=== PATIENT | male | born 1995 | race African-American/Black ===

== ENCOUNTER 2017-01-05 22:51 | Emergency (ER) | payer MEDICAID, OTHER ==
[~2017-01-05] VITALS: Ht 185.4 cm; Wt 79.5 kg
[2017-01-05 22:57] VITALS: Ht 185.4 cm; Wt 79.5 kg
[2017-01-05] MEDS ORDERED: HALOPERIDOL 5 MG INJ IM STA (23:11)
[2017-01-05] MEDS ORDERED: LORAZEPAM 2 MG INJ IM STA (23:11)
[2017-01-05] MEDS ORDERED: DIPHENHYDRAMINE 50 MG INJ IM ONE (23:30)
[2017-01-06 00:12] LABS: ADD SCAN DIFF NO
[2017-01-06 00:13] LABS: BASOPHILS % 0.1 % (0.0-2.0); HEMATOCRIT 45.9 % (42.0-52.0); HEMOGLOBIN 15.6 g/dl (14.0-18.0); LYMPHOCYTES # 0.8 10^3/ul (0.8-2.9); LYMPHOCYTES % 7.7 % (15.0-51.0); MEAN CORPUSCULAR HEMOGLOBIN 28.6 pg (29.0-33.0); MEAN CORPUSCULAR VOLUME 84.1 fl (82.0-101.0); MEAN PLATELET VOLUME 9.9 fl (7.4-10.4); MONOCYTE # 0.8 10^3/ul (0.3-0.9); MONOCYTES % 7.1 % (0.0-11.0); NEUTROPHIL # 8.9 10^3/ul (1.6-7.5); NEUTROPHILS % 84.8 % (39.0-77.0); PLATELET COUNT 234 10^3/UL (140-415); RED BLOOD COUNT 5.46 10^6/ul (4.70-6.10); RED CELL DISTRIBUTION WIDTH 12.8 % (11.5-14.5); WHITE BLOOD COUNT 10.5 10^3/ul (4.8-10.8)
[2017-01-06 00:30] LABS: ALANINE AMINOTRANSFERASE 39 IU/L (13-69); ALBUMIN/GLOBULIN RATIO 1.42; ALKALINE PHOSPHATASE 69 IU/L (42-121); ANION GAP 18 (8-16); ASPARTATE AMINO TRANSFERASE 42 IU/L (15-46); BILIRUBIN,INDIRECT 0.8 mg/dl (0-1.1); BILIRUBIN,TOTAL 0.8 mg/dl (0.2-1.3); BLOOD UREA NITROGEN 16 mg/dl (7-20); CALCIUM 9.9 mg/dl (8.4-10.2); CARBON DIOXIDE 20 mmol/L (21-31); CHLORIDE 102 mmol/L (97-110); CREATININE 1.32 mg/dl (0.61-1.24); GLUCOSE 108 mg/dl (70-220); POTASSIUM 3.5 mmol/L (3.5-5.1); SODIUM 136 mmol/L (135-144); TOTAL PROTEIN 8.5 g/dl (6.1-8.1)
[2017-01-06 01:02] LABS: ACETAMINOPHEN < 10.0 ug/ml (10.0-30.0); SALICYLATE < 1.0 mg/dl (5.0-30.0)
[2017-01-06 01:13] LABS: ADD UMIC YES; URINE BILIRUBIN (Dip) 1+ (NEGATIVE); URINE BLOOD (Dip) 3+ (NEGATIVE); URINE COLOR YELLOW (YELLOW); URINE GLUCOSE (Dip) NEGATIVE (NEGATIVE); URINE KETONES (Dip) NEGATIVE (NEGATIVE); URINE LEUKOCYTE ESTERASE (Dip) NEGATIVE (NEGATIVE); URINE NITRITE (Dip) NEGATIVE (NEGATIVE); URINE TOTAL PROTEIN (Dip) 2+ (NEGATIVE); URINE UROBILINOGEN (Dip) 0.2 E.U./dL (0.1-1.0)
[2017-01-06 01:25] LABS: ICTOTEST NEGATIVE (NEGATIVE)
[2017-01-06 01:27] LABS: BACTERIA,URINE MODERATE; URINE RBCS >50 /HPF (0)
[2017-01-06 01:33] LABS: CANNABINOIDS Positive (NEGATIVE)
[2017-01-06 01:46] LABS: BARBITURATES Negative (NEGATIVE); BENZODIAZEPINES Negative (NEGATIVE); COCAINE Positive (NEGATIVE); OPIATES Negative (NEGATIVE)
[2017-01-06 02:25] VITALS: TEMP 98.9
--- NOTE | 2017-01-06 02:35 | ERA ---
ER Documentation Chief Complaint Date/Time DATE: 01/06/17 TIME: 02:34 Chief Complaint schizophrenia,BIBA RA88,fd running through traffic screaming,taking clothes (JANAE LONDON) HPI This is a 21-year-old male with history of schizophrenia was brought in by rescue 88 found running through traffic screaming taking his clothes off. Patient continually screams, "please do not kill me ". Patient very combative on arrival. Given sedation i intramuscularly and placed on soft restraints for his own safety. De-escalation at times verbally and in seclusion did not work (JANAE LONDON) ROS All systems reviewed and are negative except as per history of present illness. (JANAE LONDON) Medications Home Meds Unable to Obtain Active Prescriptions or Reported Meds Allergies Allergies: Coded Allergies: No Known Allergy (Unverified , 01/05/17) PMhx/Soc Medical and Surgical Hx: pt denies Surgical Hx History of Surgery: No Anesthesia Reaction: No Hx Neurological Disorder: No Hx Respiratory Disorders: No Hx Cardiac Disorders: No Hx Psychiatric Problems: Yes (schizophrenia) Hx Miscellaneous Medical Probl: No Hx Alcohol Use: Yes (1 tallboy beer today) Hx Substance Use: Yes (occassional marijuana, may've used coke today) Hx Tobacco Use: Yes Smoking Status: Current every day smoker (JANAE LONDON) Physical Exam Vitals Vital Signs Date Time Temp Pulse Resp B/P Pulse Ox O2 Delivery O2 Flow Rate FiO2 01/06/17 05:40 57 16 88/41 98 Room Air 01/06/17 04:37 62 16 108/59 99 Room Air 01/06/17 02:25 98.9 58 16 94/60 99 Room Air 01/06/17 00:40 98.9 94 16 99/53 100 01/06/17 00:30 97.9 90 22 96/47 01/06/17 00:15 98.0 86 16 100/50 01/06/17 00:00 98.0 99 26 130/65 01/05/17 23:45 98.6 105 28 140/62 100 01/05/17 23:30 98.3 100 30 125/50 98 01/05/17 22:57 97.1 122 18 120/63 95 (GEORGIANA HARDY Physical Exam Const: [] Head: Atraumatic Eyes: Normal Conjunctiva ENT: Normal External Ears, Nose and Mouth. Neck: Full range of motion..~ No meningismus. Resp: Clear to auscultation bilaterally Cardio: Regular rate and rhythm, no murmurs Abd: Soft, non tender, non distended. Normal bowel sounds Skin: No petechiae or rashes Back: No midline or flank tenderness Ext: No cyanosis, or edema Neur: Awake and alert Psych: Normal Mood and Affect (JANAE LONDON) Result Diagram: 01/05/17 2344 01/05/17 2344 Results 24 hrs Laboratory Tests Test 01/05/17 00:29 01/05/17 23:44 Urine Color YELLOW Urine Clarity CLEAR Urine pH 5.5 Urine Specific [place] >=1.030 Urine Ketones NEGATIVE Urine Nitrite NEGATIVE Urine Bilirubin 1+ Urine Ictotest NEGATIVE Urine Urobilinogen 0.2 E.U./dL Urine Leukocyte Esterase NEGATIVE Urine Microscopic RBC >50/HPF Urine Microscopic WBC 0-2/HPF Urine Bacteria MODERATE Urine Granular Casts FEW Urine Hemoglobin 3+ Urine Glucose NEGATIVE% Urine Total Protein 2+ Urine Opiates Screen Negative Urine Barbiturates Negative Urine Amphetamines Screen Positive Urine Benzodiazepines Screen Negative Urine Cocaine Screen Positive Urine Cannabinoids Positive White Blood Count 10.510^3/ul Red Blood Count 5.4610^6/ul Hemoglobin 15.6g/dl Hematocrit 45.9% Mean Corpuscular Volume 84.1fl Mean Corpuscular Hemoglobin 28.6pg Mean Corpuscular Hemoglobin Concent 34.0g/dl Red Cell Distribution Width 12.8% Platelet Count 73669^3/UL Mean Platelet Volume 9.9fl Neutrophils % 84.8% Lymphocytes % 7.7% Monocytes % 7.1% Eosinophils % 0.0% Basophils % 0.1% Nucleated Red Blood Cells % 0.0/100WBC Neutrophils # 8.910^3/ul Lymphocytes # 0.810^3/ul Monocytes # 0.810^3/ul Eosinophils # 0.010^3/ul Basophils # 0.010^3/ul Nucleated Red Blood Cells # 0.010^3/ul Sodium Level 136mmol/L Potassium Level 3.5mmol/L Chloride Level 102mmol/L Carbon Dioxide Level 20mmol/L Anion Gap 18 Blood Urea Nitrogen 16mg/dl Creatinine 1.32mg/dl Glucose Level 108mg/dl Calcium Level 9.9mg/dl Total Bilirubin 0.8mg/dl Direct Bilirubin 0.00mg/dl Indirect Bilirubin 0.8mg/dl Aspartate Amino Transf (AST/SGOT) 42IU/L Alanine Aminotransferase (ALT/SGPT) 39IU/L Alkaline Phosphatase 69IU/L Total Protein 8.5g/dl Albumin 5.0g/dl Globulin 3.50g/dl Albumin/Globulin Ratio 1.42 Salicylates Level < 1.0mg/dl Acetaminophen Level < 10.0ug/ml Ethyl Alcohol Level 12.0mg/dl Current Medications Medications (Trade) Dose Ordered Sig/Tony Route PRN Reason Start Time Stop Time Status Last Admin Dose Admin Lorazepam (Ativan) 2 mg ONCE STAT IM 01/05/17 23:11 01/05/17 23:13 DC 01/05/17 23:37 Haloperidol (Haldol) 5 mg ONCE STAT IM 01/05/17 23:11 01/05/17 23:13 DC 01/05/17 23:37 Diphenhydramine HCl (Benadryl) 50 mg ONCE ONCE IM 01/05/17 23:30 01/05/17 23:31 DC 01/05/17 23:37 (GEORGIANA HARDY DO) Procedures/MDM Patient's behavioral symptoms have stabilized while in the department. Patient is medically cleared and appropriate for psychiatric evaluation and work up. No e/o neurologic, toxic, infectious, or metabolic cause. (JANAE LONDON) Patient was interviewed by telemetry psychiatrist spoke with me afterwards as the patient is stable for discharge home with outpatient follow-up. Spoke with the patient he is calm awake alert and oriented not suicidal homicidal (GEORGIANA HARDY DO) Departure Diagnosis: Primary Impression: Acute schizophrenia episode Condition: Stable JANAE LONDON Jan 06, 2017 02:35 GEORGIANA HARDY DO Jan 06, 2017 08:00
--- NOTE | 2017-01-06 08:02 | PSY ---
Date/Time of Note Date/Time of Note DATE: 01/06/17 TIME: 07:47 Psychiatric Subjective Eval Consent Pt consented to telemedicine: Yes Subjective Evaluation Patient location: emergency Chief Complaint: schizophrenia,BIBA RAMarissa,fd running through traffic screaming, taking clothes Reason for consult: Safety History of present illness 21 year old male with polysubstance abuse was brought in by rescue 88 found running through traffic screaming taking his clothes off. He consents to telemedicine this morning. Patient reports he is here because he "had a trip", admitted to using cocaine. He does not remember full details yesterday, but agrees that drugs may have made him really agitated. He denies depressed mood. He denies any auditory hallucinations, paranoid ideation, overt delusions. He denies SI/HI intent or plan. He deneis prior suicide attempts or past psychiatric hospitalizations. He has been in good behavior control in the ED. He is homeless. He does not want substance abuse treatment. Chart indicates he may have a history of schizophrenia but he denies having this diagnosis. Patient denies having access to lethal weapons including guns. Past psychiatric history Denies Hospitalization: no Family History Denies FH of suicide, schizophrenia Medical history Problems Medical Problems: (1) Acute schizophrenia episode Status: Acute Allergies: Coded Allergies: No Known Allergy (Unverified , 01/05/17) Substance Abuse Substance abuse history: Yes (Admits to cocaine, urine positive for amphetamines and THC as well) Prior substance abuse treatmen: No Social History Marital status: DPA/Conservatorship: No Occupation/Senior Living: unemployed Psychiatric Objective Eval Mental Status Examination: Appearance: Poor Hygiene Eye Contact: Poor Psychomotor Activity: Normal Behavior: Cooperative Speech: Clear AFFECT: Constricted Mood: Irritable Though Process: Linear Thought Content: Normal Suicidal: No Homicidal: No Orientation: x4 Cognition: Drowsy Insight: Mild Judgement: Mild Attention Span: Intact Laboratory Results Laboratory Tests Test 01/05/17 00:29 01/05/17 23:44 Urine Color YELLOW Urine Clarity CLEAR Urine pH 5.5 Urine Specific [place] >=1.030 Urine Ketones NEGATIVE Urine Nitrite NEGATIVE Urine Bilirubin 1+ Urine Ictotest NEGATIVE Urine Urobilinogen 0.2 E.U./dL Urine Leukocyte Esterase NEGATIVE Urine Microscopic RBC >50/HPF Urine Microscopic WBC 0-2/HPF Urine Bacteria MODERATE Urine Granular Casts FEW Urine Hemoglobin 3+ Urine Glucose NEGATIVE% Urine Total Protein 2+ Urine Opiates Screen Negative Urine Barbiturates Negative Urine Amphetamines Screen Positive Urine Benzodiazepines Screen Negative Urine Cocaine Screen Positive Urine Cannabinoids Positive White Blood Count 10.510^3/ul Red Blood Count 5.4610^6/ul Hemoglobin 15.6g/dl Hematocrit 45.9% Mean Corpuscular Volume 84.1fl Mean Corpuscular Hemoglobin 28.6pg Mean Corpuscular Hemoglobin Concent 34.0g/dl Red Cell Distribution Width 12.8% Platelet Count 03929^3/UL Mean Platelet Volume 9.9fl Neutrophils % 84.8% Lymphocytes % 7.7% Monocytes % 7.1% Eosinophils % 0.0% Basophils % 0.1% Nucleated Red Blood Cells % 0.0/100WBC Neutrophils # 8.910^3/ul Lymphocytes # 0.810^3/ul Monocytes # 0.810^3/ul Eosinophils # 0.010^3/ul Basophils # 0.010^3/ul Nucleated Red Blood Cells # 0.010^3/ul Sodium Level 136mmol/L Potassium Level 3.5mmol/L Chloride Level 102mmol/L Carbon Dioxide Level 20mmol/L Anion Gap 18 Blood Urea Nitrogen 16mg/dl Creatinine 1.32mg/dl Glucose Level 108mg/dl Calcium Level 9.9mg/dl Total Bilirubin 0.8mg/dl Direct Bilirubin 0.00mg/dl Indirect Bilirubin 0.8mg/dl Aspartate Amino Transf (AST/SGOT) 42IU/L Alanine Aminotransferase (ALT/SGPT) 39IU/L Alkaline Phosphatase 69IU/L Total Protein 8.5g/dl Albumin 5.0g/dl Globulin 3.50g/dl Albumin/Globulin Ratio 1.42 Salicylates Level < 1.0mg/dl Acetaminophen Level < 10.0ug/ml Ethyl Alcohol Level 12.0mg/dl Assessment and Plan Assessment/Diagnosis [place] I: F29 Psychosis NOS, 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 Stimulant use disorder [place] II: deferred [place] IV: housing [place] V: 50 Recommendation/Plan Follow-up/Disposition At this time, patient is at low to moderate risk of imminent harm to self or others. He does not have any thoughts of harming himself or others, and denies having a prior history of it. Likely his agitated behavior yesterday was in setting of stimulant use. Patient is at high risk for relapse to stimulants, which could put him at greater risk for safety. Patient was offered substance abuse resources but pt declined. He does not meet criteria for 5150. He should follow up with PCP within 5 days of discharge when medically cleared. BRANDY BUTTS MD Jan 06, 2017 08:01
[2017-01-06 08:31] VITALS: BP 101/56; PULSE 61; RESP 18
== END 2017-01-06 08:33 | disposition home or self-care (01) ==
LOC: E/R 22:51
DX: F23 Brief psychotic disorder (principal); R40.2242 Coma scale, best verbal response, confused conversation, at arrival to emergency department; F17.210 Nicotine dependence, cigarettes, uncomplicated; R40.2142 Coma scale, eyes open, spontaneous, at arrival to emergency department; R40.2362 Coma scale, best motor response, obeys commands, at arrival to emergency department
CPT/HCPCS: 36415; 80053; 80306; 80307; 81001; 81003; 85025; 96372; J1200; J1630; J2060; Z7502